=== PATIENT | male | born 1995 | race Hispanic/Latino ===

== ENCOUNTER 2023-05-06 09:47 | Emergency (ER) | payer SELFPAY ==
[2023-05-06] MEDS ORDERED: Acetaminophen 500 MG TAB ONE (11:02)
== END 2023-05-06 11:05 | disposition home or self-care (01) ==
LOC: ERS 09:47
DX: S09.90XA Unspecified injury of head, initial encounter (principal); W22.8XXA Striking against or struck by other objects, initial encounter
CPT/HCPCS: 70450; 72125